=== PATIENT | female | born 1985 | race Caucasian/White ===

== ENCOUNTER 2016-10-28 16:51 | Emergency (ER) | payer SELFPAY ==
--- NOTE | 2016-11-07 01:14 | ER ---
ADMIT: 10/28/2016 RM/LOC: ER [facility] MR#: [id number] [address] [id number] LULI KAUFFMAN [address] [place] [address] Emergency Room Report SEX: F AGE: 31 : 1985 DATE: 10/28/2016 See T-sheet for complete H and P. ADDENDUM: A 31-year-old female, comes in after she fell off step stool today onto a hard surface. It happened a few hours prior to arrival and she is complaining of some pain in her head and left wrist primarily. She also has some mild pain in her left hip and right knee. On examination, she has some limited range of motion of left wrist, but no noted swelling or ecchymosis. She does not have any scaphoid tenderness. An x-ray of her left wrist is negative. Because she does state she is mildly nauseous and a little dazed after the event, I did get a CT head which shows nothing acute. Her left lateral hip shows that she has some soft tissue ecchymosis, but is able to ambulate without difficulty and evaluation of her right knee reveals only some mild tenderness on the medial aspect, but no swelling and she has full range of motion. She is discharged home with a cock-up splint to her left wrist, to follow up with Dr. Mata if not significantly improved in 1 week and use ibuprofen t.i.d. for the next several days. DIAGNOSES: 1. Head contusion. 2. Left wrist contusion. 3. Left hip contusion. 4. Right knee contusion. Shad Drummond MD/ brant JOB #: [id number] CC: Shad Drummond MD, Attending Physician Silas Mata MD, Family Physician
== END 2016-10-28 19:30 | disposition home or self-care (01) ==
LOC: ER 16:51
PROC: 2W3DX1Z Immobilization of Left Lower Arm using Splint (ICD-10-PCS; principal; 2016-10-28)
DX: S70.02XA Contusion of left hip, initial encounter (principal); S80.01XA Contusion of right knee, initial encounter; W19.XXXA Unspecified fall, initial encounter; Y92.69 Other specified industrial and construction area as the place of occurrence of the external cause